=== PATIENT | male | born 1980 | race American Indian/Alaskan Native ===

== ENCOUNTER 2020-05-25 09:02 | Outpatient (CLI) | payer OTHER ==
--- NOTE | 2020-05-25 10:08 | XRay Report ---
RIGHT TIBIA AND FIBULA 2 VIEWS INDICATION / CLINICAL INFORMATION: PAIN IN RIGHT ANKLE AND JOINTS OF RIGHT FOOT COMPARISON: None available. FINDINGS: BONES / JOINT(S): There is a fracture of the lateral malleolus with associated soft tissue swelling. No significant arthritis. SOFT TISSUES: No significant abnormality. ADDITIONAL FINDINGS: None. Signer Name: Niles Buckner MD Signed: 05/25/2020 10:03 AM Workstation Name: [id number]
== END 2020-05-25 09:03 | disposition home or self-care (01) ==
LOC: XRAY 09:02
PROVIDERS: ATTEND Orthopaedic Surgery
DX: S82.61XA Displaced fracture of lateral malleolus of right fibula, initial encounter for closed fracture (principal); X58.XXXA Exposure to other specified factors, initial encounter; Y93.89 Activity, other specified; Y92.89 Other specified places as the place of occurrence of the external cause; Y99.8 Other external cause status